=== PATIENT | female | born 1985 | race Caucasian/White ===

== ENCOUNTER → 2020-01-17 | Outpatient (CLI) | payer MEDICARE, MEDICAID | LOC: M OUTALCOH 08:09 | PROVIDERS: ATTEND Psychiatry & Neurology Addiction Medicine | DX: F10.20 Alcohol dependence, uncomplicated (principal) ==

== ENCOUNTER → 2020-02-28 | Outpatient (RCR) | payer MEDICARE, MEDICAID | LOC: M OUTALCOH 02-16 11:00 | PROVIDERS: ATTEND Psychiatry & Neurology Addiction Medicine | DX: F10.20 Alcohol dependence, uncomplicated (principal); Z72.0 Tobacco use ==

== ENCOUNTER 2020-03-14 15:28 | Outpatient (RCR) | payer MEDICARE, MEDICAID | END 2020-03-29 | LOC: M OUTALCOH 15:28 | PROVIDERS: ATTEND Psychiatry & Neurology Addiction Medicine | DX: F10.20 Alcohol dependence, uncomplicated (principal); Z72.0 Tobacco use ==